=== PATIENT | female | born 1940 | race Caucasian/White ===

== ENCOUNTER → 2016-06-18 | Outpatient (CLI) | payer MEDICARE | LOC: MC.RAD 06-17 11:00 | DX: Z12.31 Encounter for screening mammogram for malignant neoplasm of breast (principal) ==

== ENCOUNTER → 2017-07-26 | Outpatient (CLI) | payer MEDICARE | LOC: MC.RAD 10:15 | DX: Z12.31 Encounter for screening mammogram for malignant neoplasm of breast (principal); N63.21 Unspecified lump in the left breast, upper outer quadrant ==

== ENCOUNTER → 2017-07-30 | Outpatient (CLI) | payer MEDICARE | LOC: MC.RAD 09:53 | DX: N63.20 Unspecified lump in the left breast, unspecified quadrant (principal); N60.02 Solitary cyst of left breast ==

== ENCOUNTER → 2018-02-03 | Outpatient (CLI) | payer MEDICARE | LOC: MC.RAD 10:00 | DX: N60.02 Solitary cyst of left breast (principal) | CPT/HCPCS: G0279 ==

== ENCOUNTER → 2018-08-10 | Outpatient (CLI) | payer MEDICARE | LOC: MC.RAD 13:16 | DX: Z12.31 Encounter for screening mammogram for malignant neoplasm of breast (principal); N60.02 Solitary cyst of left breast ==

== ENCOUNTER 2019-12-05 14:05 | Outpatient (RCR) | payer MEDICARE | END 2019-12-05 15:26 | disposition home or self-care (01) | LOC: MKS.ESL.PT 14:05 | DX: N39.0 Urinary tract infection, site not specified (principal) ==